=== PATIENT | female | born 1955 | race African-American/Black ===

== ENCOUNTER 2020-07-28 16:21 | Emergency (ER) | payer MEDICAID, OTHER ==
[~2020-07-28] VITALS: Ht 165.1 cm; Wt 68.0 kg
[2020-07-28 17:00] LABS: Basophils # (auto) 0 10 ^3/uL (0-0.2); Basophils % (auto) 0.7 % (0.0-2.0); Eosinophils # (auto) 0 10 ^3/uL (0-0.8); Eosinophils % (auto) 0.9 % (0.0-7.0); Hematocrit 39.5 % (36.0-46.0); Hemoglobin 13.6 g/dL (12.2-16.2); Lymphocytes # (auto) 2.6 10 ^3/uL (0.4-5.4); Lymphocytes % (auto) 51.3 % (10.0-50.0); Mean Corpuscular Hemoglobin 36.2 pg (28.0-32.0); Mean Corpuscular Hgb Conc. 34.5 g/dL (32.0-36.0); Mean Corpuscular Volume 104.9 fL (80.0-100.0); Monocytes # (auto) 0.5 10 ^3/uL (0-1.3); Monocytes % (auto) 9.3 % (0.0-12.0); Neutrophils # (auto) 1.9 10 ^3/uL (1.6-8.6); Neutrophils % (auto) 37.8 % (37.0-80.0); Nucleated Red Blood Cells % 0.2 %; Platelet Count (auto) 171 10^3/uL (140-450); Red Blood Cells 3.77 10^6/uL (4.0-5.20); Red Cell Distribution Width 16.4 % (11.8-14.3)
[2020-07-28 17:25] LABS: INR 1.11 (0.9-1.15); Partial Thromboplastin Time 27.5 sec (23.0-31.2)
[2020-07-28 17:26] LABS: Albumin 2.8 g/dL (3.4-5.0); Anion Gap 9 (5-15); Calcium 8.1 mg/dL (8.5-10.1); Carbon Dioxide 23 mmol/L (21-32); Chloride 113 mmol/L (98-107); Glucose 78 mg/dL (74-106); Magnesium 1.8 mg/dL (1.6-2.6); Sodium 145 mmol/L (136-145)
[2020-07-28 17:37] LABS: Alanine Aminotransferase 36 U/L (13-56); Alkaline Phosphatase 121 U/L (45-117); Aspartate Aminotransferase 79 U/L (15-37); Bilirubin, Total 0.3 mg/dL (0.2-1.0); GFR African American 127 mL/min; GFR Non-African American 105 mL/min; Total Protein 6.3 g/dL (6.4-8.2)
[2020-07-28 17:38] LABS: Potassium 2.7 mmol/L (3.5-5.1)
[2020-07-28 17:42] LABS: BUN/Creatinine Ratio 11.5; Blood Urea Nitrogen 7 mg/dL (7-18)
[2020-07-28] MEDS: HYDROcodone-ACET 10/325MG TAB PO ONE (20:40)
[2020-07-28] MEDS: POTASSIUM CHL 20 Meq TABLET PO ONE ×2 (20:40→22:44)
[2020-07-28] MEDS: POTASSIUM CHL 20MEQ/100ML 100 ML IV SCH (21:15)
[2020-07-29 01:08] VITALS: BP 106/64
== END 2020-07-29 01:19 | disposition still patient (30) ==
LOC: ER 16:21
DX: R06.02 Shortness of breath (principal); R07.89 Other chest pain; E87.6 Hypokalemia; E44.0 Moderate protein-calorie malnutrition; I50.9 Heart failure, unspecified; K21.9 Gastro-esophageal reflux disease without esophagitis; F17.210 Nicotine dependence, cigarettes, uncomplicated; Z20.822 Contact with and (suspected) exposure to COVID-19; Z86.73 Personal history of transient ischemic attack (TIA), and cerebral infarction without residual deficits; Z68.25 Body mass index [BMI] 25.0-25.9, adult
CPT/HCPCS: 36415; 71045; 80053; 83735; 83880; 84484; 85025; 85379; 85610; 85730; 87426; 93005; 93971; 96365; 99285; C9803; J3480; U0003

== ENCOUNTER 2020-10-29 21:43 | Inpatient (IN) | payer MEDICAID ==
[~2020-10-29] VITALS: Ht 167.6 cm; Wt 78.0 kg
[2020-10-29 23:21] LABS: Hemoglobin 11.9 g/dL (12.2-16.2); Nucleated Red Blood Cells % 0.1 %; Red Cell Distribution Width 15.2 % (11.8-14.3)
[2020-10-29 23:22] LABS: Basophils # (auto) 0.1 10 ^3/uL (0-0.2); Basophils % (auto) 0.9 % (0.0-2.0); Eosinophils # (auto) 0 10 ^3/uL (0-0.8); Eosinophils % (auto) 0.3 % (0.0-7.0); Hematocrit 35.3 % (36.0-46.0); Lymphocytes % (auto) 21.6 % (10.0-50.0); Mean Corpuscular Hemoglobin 37.8 pg (28.0-32.0); Mean Corpuscular Hgb Conc. 33.8 g/dL (32.0-36.0); Monocytes # (auto) 1.8 10 ^3/uL (0-1.3); Monocytes % (auto) 13.3 % (0.0-12.0); Neutrophils # (auto) 8.8 10 ^3/uL (1.6-8.6); Neutrophils % (auto) 63.9 % (37.0-80.0); Platelet Count (auto) 243 10^3/uL (140-450); Red Blood Cells 3.15 10^6/uL (4.0-5.20); White Blood Cell 13.7 10^3/uL (4.4-10.8)
[2020-10-29 23:40] LABS: Alanine Aminotransferase 46 U/L (13-56); Anion Gap 7 (5-15); Blood Urea Nitrogen 5 mg/dL (7-18); Calcium 8.1 mg/dL (8.5-10.1); Carbon Dioxide 23 mmol/L (21-32); Chloride 108 mmol/L (98-107); Glucose 85 mg/dL (74-106); Potassium 3.8 mmol/L (3.5-5.1); Sodium 138 mmol/L (136-145)
[2020-10-29 23:45] LABS: Alkaline Phosphatase 227 U/L (45-117); Aspartate Aminotransferase 125 U/L (15-37); Bilirubin, Total 3.4 mg/dL (0.2-1.0); GFR African American 160 mL/min; GFR Non-African American 132 mL/min; Total Protein 6.8 g/dL (6.4-8.2)
[2020-10-29 23:59] LABS: INR 1.28 (0.9-1.15)
[2020-10-30] MEDS ORDERED: ONDANSETRON HCL 4 MG/2 ML VIAL IV ONE (00:15)
[2020-10-30] MEDS ORDERED: fentaNYL CITRATE 100 MCG/2 ML VL IV ONE (00:15)
[2020-10-30] MEDS ORDERED: IOHEXOL 300 MG/ML 100ML BOTTLE IJ ONE (02:07)
[2020-10-30] MEDS ORDERED: HYDROmorphone HCL 2 MG/ML VL IV ONE (05:00)
[2020-10-30] MEDS ORDERED: MORPHINE SULF INJ 2 MG/ML SYRINGE 1ML IV PRN (06:45)
[2020-10-30] MEDS ORDERED: ALBUMIN 25% 50 ML IV ONE (06:45)
[2020-10-30] MEDS ORDERED: NITROGLYCERIN 0.4 MG SL TAB SL PRN (06:45)
[2020-10-30] MEDS ORDERED: IBUPROFEN 400 MG TAB PO PRN (06:45)
[2020-10-30] MEDS ORDERED: MORPHINE SULFATE 4 MG/ML SYR/VIAL IV PRN (06:45)
[2020-10-30 08:21] LABS: Eosinophils # (auto) 0.1 10 ^3/uL (0-0.8)
[2020-10-30 08:23] LABS: Basophils # (auto) 0 10 ^3/uL (0-0.2); Basophils % (auto) 0.2 % (0.0-2.0); Eosinophils % (auto) 0.4 % (0.0-7.0); Hematocrit 29.1 % (36.0-46.0); Hemoglobin 9.9 g/dL (12.2-16.2); Lymphocytes # (auto) 2.5 10 ^3/uL (0.4-5.4); Lymphocytes % (auto) 19.6 % (10.0-50.0); Mean Corpuscular Hemoglobin 38.1 pg (28.0-32.0); Mean Corpuscular Volume 112.3 fL (80.0-100.0); Monocytes # (auto) 1.9 10 ^3/uL (0-1.3); Monocytes % (auto) 15.1 % (0.0-12.0); Neutrophils # (auto) 8.3 10 ^3/uL (1.6-8.6); Neutrophils % (auto) 64.7 % (37.0-80.0); Platelet Count (auto) 206 10^3/uL (140-450); Red Blood Cells 2.59 10^6/uL (4.0-5.20); Red Cell Distribution Width 15.3 % (11.8-14.3); White Blood Cell 12.8 10^3/uL (4.4-10.8)
[2020-10-30 08:34] LABS: Albumin 1.8 g/dL (3.4-5.0); Calcium 7.6 mg/dL (8.5-10.1); Potassium 4.1 mmol/L (3.5-5.1)
[2020-10-30 08:40] LABS: Bilirubin, Total 3.5 mg/dL (0.2-1.0); Total Protein 5.8 g/dL (6.4-8.2)
[2020-10-30 09:00] VITALS: BP 91/57
[2020-10-30] MEDS ORDERED: ASPI325T4 PO (09:59)
[2020-10-30] MEDS: FUROSEMIDE 40 MG/4 ML VIAL IV SCH (10:00)
[2020-10-30] MEDS ORDERED: HYDR-4798 PO (10:00)
[2020-10-30] MEDS: ZINC SULFATE 220mg CAP or TAB PO SCH (10:50)
[2020-10-30] MEDS: FAMOTIDINE (10MG/ML) 2ML VL IV SCH ×2 (10:50→22:03)
[2020-10-30] MEDS: AZITHROMYCIN 500MG/ 250ML 250 ML IV SCH (10:50)
[2020-10-30] MEDS: MULTIPLE VITAMIN TAB PO SCH (10:51)
[2020-10-30] MEDS: ASCORBIC ACID 500 MG TAB PO SCH ×2 (10:51→22:03)
[2020-10-30] MEDS: ONDANSETRON HCL 4 MG/2 ML VIAL IV PRN ×2 (12:24→17:37)
[2020-10-30 13:00] VITALS: BP 129/73
[2020-10-30] MEDS: SODIUM CHLOR 0.9% PF (SALINE LOCK) 10ML VIAL/SYR IV SCH ×2 (14:41→22:03)
[2020-10-30] MEDS: ALBUMIN 25% 100 ML IV SCH ×2 (16:20→17:03)
[2020-10-30 17:00] VITALS: BP 101/67
[2020-10-30] MEDS: MORPHINE SULFATE 4 MG/ML SYR/VIAL IV PRN ×2 (17:37→22:04)
[2020-10-30] MEDS: HYDROcodone-ACET 5/325MG TAB PO PRN ×2 (18:51→20:04)
[2020-10-30 22:00] VITALS: BP 105/64
[2020-10-31 05:00] VITALS: BP 105/60
[2020-10-31] MEDS: SODIUM CHLOR 0.9% PF (SALINE LOCK) 10ML VIAL/SYR IV SCH ×3 (05:53→22:03)
[2020-10-31 05:59] LABS: Basophils # (auto) 0 10 ^3/uL (0-0.2); Eosinophils # (auto) 0.1 10 ^3/uL (0-0.8); Eosinophils % (auto) 0.8 % (0.0-7.0); Hemoglobin 10.5 g/dL (12.2-16.2); Monocytes # (auto) 1.1 10 ^3/uL (0-1.3); Neutrophils # (auto) 6.3 10 ^3/uL (1.6-8.6); Nucleated Red Blood Cells % 0.1 %
[2020-10-31 06:01] LABS: Basophils % (auto) 0.3 % (0.0-2.0); Hematocrit 30.6 % (36.0-46.0); Lymphocytes % (auto) 28.1 % (10.0-50.0); Mean Corpuscular Hemoglobin 39.5 pg (28.0-32.0); Mean Corpuscular Hgb Conc. 34.3 g/dL (32.0-36.0); Monocytes % (auto) 10.9 % (0.0-12.0); Neutrophils % (auto) 59.9 % (37.0-80.0); Platelet Count (auto) 199 10^3/uL (140-450); Red Blood Cells 2.66 10^6/uL (4.0-5.20); Red Cell Distribution Width 15.3 % (11.8-14.3); White Blood Cell 10.5 10^3/uL (4.4-10.8)
[2020-10-31 06:08] LABS: Albumin 2.6 g/dL (3.4-5.0); Calcium 8.2 mg/dL (8.5-10.1); Potassium 4.3 mmol/L (3.5-5.1)
[2020-10-31 06:12] LABS: BUN/Creatinine Ratio 9.1; Bilirubin, Total 2.5 mg/dL (0.2-1.0); Total Protein 6.5 g/dL (6.4-8.2)
[2020-10-31] MEDS: MORPHINE SULFATE 4 MG/ML SYR/VIAL IV PRN ×3 (06:31→20:01)
[2020-10-31 08:00] VITALS: BP 101/64
[2020-10-31] MEDS ORDERED: PHYTONADIONE(VitK) ORAL Susp 10mg/10ml(1mg/ml) PO ONE (11:00)
[2020-10-31] MEDS: FAMOTIDINE (10MG/ML) 2ML VL IV SCH ×2 (11:25→22:03)
[2020-10-31] MEDS: ZINC SULFATE 220mg CAP or TAB PO SCH (11:26)
[2020-10-31] MEDS: MULTIPLE VITAMIN TAB PO SCH (11:26)
[2020-10-31] MEDS: AZITHROMYCIN 500MG/ 250ML 250 ML IV SCH (11:26)
[2020-10-31] MEDS: ASCORBIC ACID 500 MG TAB PO SCH (11:27)
[2020-10-31 12:00] VITALS: BP 111/67
[2020-10-31] MEDS: FUROSEMIDE 40 MG/4 ML VIAL IV SCH (12:37)
[2020-10-31] MEDS ORDERED: POLYETHYLENE GLYCOL 17 GM PWDR PO PRN (13:00)
[2020-10-31 16:00] VITALS: BP 89/61
[2020-10-31] MEDS ORDERED: SODIUM CHLORIDE 0.9% 1,000 ML IV ONE ×2 (16:45→19:00)
[2020-10-31 18:48] VITALS: BP 100/64
[2020-10-31 22:00] VITALS: BP 101/68
[2020-11-01] VITALS (7 sets, daily range): BP systolic 94–128; BP diastolic 44–87
[2020-11-01] MEDS: MORPHINE SULFATE 4 MG/ML SYR/VIAL IV PRN ×4 (00:03→17:58)
[2020-11-01] MEDS: SODIUM CHLOR 0.9% PF (SALINE LOCK) 10ML VIAL/SYR IV SCH ×3 (06:35→22:38)
[2020-11-01] MEDS: FAMOTIDINE (10MG/ML) 2ML VL IV SCH ×2 (09:24→22:38)
[2020-11-01] MEDS ORDERED: LORazepam 2MG/ML-1ML VIAL IV ONE (10:15)
[2020-11-01] MEDS ORDERED: SODIUM CHLORIDE 0.9% 1,000 ML IV ONE (10:15)
[2020-11-01] MEDS ORDERED: GADOTERATE MEG 10 MMOL/20ml INJ (0.5MMOL/ml) IV ONE (15:26)
[2020-11-01] MEDS: HYDROcodone-ACET 5/325MG TAB PO PRN ×2 (16:54→21:02)
== END 2020-11-02 00:50 | disposition left against medical advice (07) ==
LOC: EDBD 21:43 → EDUNIT# 21:43 → ER 21:43 → TELE 10-30 06:39 → TELE-WESTW 10-30 08:47
PROVIDERS: ADMIT Nurse Practitioner Family; ATTEND Internal Medicine
DX: K81.9 Cholecystitis, unspecified (principal); D68.4 Acquired coagulation factor deficiency; I50.9 Heart failure, unspecified; E44.0 Moderate protein-calorie malnutrition; E66.01 Morbid (severe) obesity due to excess calories; R16.0 Hepatomegaly, not elsewhere classified; K76.0 Fatty (change of) liver, not elsewhere classified; K86.1 Other chronic pancreatitis; R19.00 Intra-abdominal and pelvic swelling, mass and lump, unspecified site; K82.8 Other specified diseases of gallbladder; K57.30 Diverticulosis of large intestine without perforation or abscess without bleeding; Z53.29 Procedure and treatment not carried out because of patient's decision for other reasons; F17.210 Nicotine dependence, cigarettes, uncomplicated; M79.605 Pain in left leg; G89.4 Chronic pain syndrome; K21.00 Gastro-esophageal reflux disease with esophagitis, without bleeding; Z88.8 Allergy status to other drugs, medicaments and biological substances; Z86.73 Personal history of transient ischemic attack (TIA), and cerebral infarction without residual deficits; Z68.27 Body mass index [BMI] 27.0-27.9, adult
CPT/HCPCS: 36415; 71045; 74177; 74183; 76705; 80053; 82105; 82378; 83735; 83880; 84484; 85025; 85610; 86301; 86850; 86900; 86901; 87426; 93005; 93970; 96365; 96375; G0378; J2405; J3490; P9047

== ENCOUNTER 2020-12-01 12:22 | Inpatient (IN) | payer MEDICAID ==
[~2020-12-01] VITALS: Ht 167.6 cm; Wt 85.7 kg
[~2020-12-01 12:22] MED LIST: ASPI325T4 PO; HYDR-4798 PO
[2020-12-01] MEDS ORDERED: HYDR-4072 (13:45)
[2020-12-01 14:21] LABS: Mean Corpuscular Hemoglobin 37.6 pg (28.0-32.0); White Blood Cell 11.9 10^3/uL (4.4-10.8)
[2020-12-01 14:22] LABS: Hematocrit 30.3 % (36.0-46.0); Hemoglobin 10.8 g/dL (12.2-16.2); Mean Corpuscular Hgb Conc. 35.7 g/dL (32.0-36.0); Mean Corpuscular Volume 105.5 fL (80.0-100.0); Red Blood Cells 2.87 10^6/uL (4.0-5.20); Red Cell Distribution Width 13.6 % (11.8-14.3)
[2020-12-01 14:26] LABS: Basophils % (manual) 0 (0.0-2.0); Blast Cells 0; Eosinophils % (manual) 0 (0-7); Metamyelocytes % 0; Myelocytes % 0; Promyelocytes % 0; Reactive Lymphocytes 0
[2020-12-01 14:40] LABS: Albumin 1.9 g/dL (3.4-5.0); Calcium 7.5 mg/dL (8.5-10.1)
[2020-12-01 14:45] LABS: BUN/Creatinine Ratio 3.6; Total Protein 6.2 g/dL (6.4-8.2)
[2020-12-01] MEDS ORDERED: SODIUM CHLORIDE 0.9% 1,000 ML IV ONE (14:45)
[2020-12-01] MEDS ORDERED: MORPHINE SULFATE 4 MG/ML SYR/VIAL IV ONE (14:45)
[2020-12-01] MEDS ORDERED: SODIUM CHLORIDE 0.9% 500 ML IVB ONE (14:45)
[2020-12-01] MEDS ORDERED: PROMETHAZINE HCL 25 MG/ML 1ML IV ONE (14:45)
[2020-12-01 14:48] LABS: Potassium 2.9 mmol/L (3.5-5.1)
[2020-12-01 15:08] LABS: Band Neutrophils % (manual) 6; Lymphocytes % (manual) 21 (10.0-50.0); Monocytes % (manual) 13 (0-12)
[2020-12-01] MEDS ORDERED: POTASSIUM EFFERVESENT TAB 25 MEQ PO ONE (15:15)
[2020-12-01] MEDS ORDERED: IOHEXOL 300 MG/ML 100ML BOTTLE IJ ONE (15:42)
[2020-12-01 16:03] LABS: Urine Bacteria NONE SEEN /hpf (None Seen); Urine Blood Negative /uL (Negative); Urine Mucus FEW (None Seen); Urine Specific Gravity 1.011 (1.001-1.035); Urine WBC 3 /hpf (0 - 5)
[2020-12-01 16:13] LABS: Magnesium 1.7 mg/dL (1.6-2.6)
[2020-12-01 16:22] LABS: INR 1.49 (0.9-1.15); Partial Thromboplastin Time 35.6 sec (23.0-31.2)
[2020-12-01] MEDS ORDERED: levoFLOXacin 500MG 100 ML IV ONE (17:30)
[2020-12-01] MEDS ORDERED: ACETAMINOPHEN 500 MG TAB PO PRN (17:30)
[2020-12-01] MEDS ORDERED: ONDANSETRON HCL 4 MG/2 ML VIAL IV PRN (17:30)
[2020-12-01] MEDS: D5W/SOD CHLO 0.9% 1,000 ML IV SCH (18:03)
[2020-12-01] MEDS: MORPHINE SULF INJ 2 MG/ML SYRINGE 1ML IV PRN (18:19)
[2020-12-01] MEDS: FAMOTIDINE (10MG/ML) 2ML VL IV SCH (22:16)
[2020-12-02] MEDS: MORPHINE SULF INJ 2 MG/ML SYRINGE 1ML IV PRN ×2 (00:05→01:13)
[2020-12-02] MEDS: D5W/SOD CHLO 0.9% 1,000 ML IV SCH ×3 (01:30→17:19)
[2020-12-02 05:00] VITALS: BP 83/51
[2020-12-02] MEDS ORDERED: POTASSIUM CHLORIDE 40 MEQ, LIDOCAINE 1% (LOCAL ANESTH.) 4 ML in SODIUM CHL 0.9% 250 ML IV ONE (07:45)
[2020-12-02] MEDS: FAMOTIDINE (10MG/ML) 2ML VL IV SCH (08:52)
[2020-12-02 09:00] VITALS: BP 82/50
[2020-12-02] MEDS: HYDROcodone-ACET 10/325MG TAB PO PRN ×3 (09:20→23:57)
[2020-12-02] MEDS: levoFLOXacin 500MG 100 ML IV SCH (10:00)
[2020-12-02 10:46] LABS: Albumin 1.7 g/dL (3.4-5.0); Calcium 7.1 mg/dL (8.5-10.1); Magnesium 1.9 mg/dL (1.6-2.6); Potassium 3.3 mmol/L (3.5-5.1)
[2020-12-02 10:51] LABS: BUN/Creatinine Ratio 5.9; Bilirubin, Total 2.2 mg/dL (0.2-1.0); Total Protein 5.6 g/dL (6.4-8.2)
[2020-12-02 13:00] VITALS: BP 81/45
[2020-12-02] MEDS ORDERED: ALBUMIN 25% 100 ML IV SCH (13:30)
[2020-12-02] MEDS ORDERED: POTASSIUM CHL 20 Meq TABLET PO ONE (13:30)
[2020-12-02] MEDS ORDERED: LORazepam 2MG/ML-1ML VIAL IV ONE (13:30)
[2020-12-02] MEDS: PANTOPRAZOLE 40 MG TAB PO SCH ×2 (14:36→21:44)
[2020-12-02] MEDS: SUCRALFATE 1 GM/10 ML ORAL SUSP PO SCH ×3 (14:36→21:44)
[2020-12-02] MEDS: ALBUMIN 25% 100 ML IV SCH ×2 (16:30→23:57)
[2020-12-02 17:00] VITALS: BP 84/33
[2020-12-02 22:00] VITALS: BP 93/59
[2020-12-03] MEDS: D5W/SOD CHLO 0.9% 1,000 ML IV SCH (02:00)
[2020-12-03 05:00] VITALS: BP 102/46
[2020-12-03] MEDS: SUCRALFATE 1 GM/10 ML ORAL SUSP PO SCH ×4 (06:37→22:15)
[2020-12-03] MEDS: HYDROcodone-ACET 10/325MG TAB PO PRN ×2 (06:50→22:15)
[2020-12-03] MEDS: ALBUMIN 25% 100 ML IV SCH (08:00)
[2020-12-03 09:00] VITALS: BP 90/54
[2020-12-03] MEDS: levoFLOXacin 500MG 100 ML IV SCH (10:00)
[2020-12-03] MEDS: PANTOPRAZOLE 40 MG TAB PO SCH ×2 (10:00→22:16)
[2020-12-03 13:00] VITALS: BP 89/37
[2020-12-03] MEDS: GABAPENTIN 300 MG CAP PO SCH ×2 (14:02→22:15)
[2020-12-03 17:00] VITALS: BP 84/42
[2020-12-03 22:00] VITALS: BP 125/72
[2020-12-04 05:00] VITALS: BP 94/59
[2020-12-04] MEDS: HYDROcodone-ACET 10/325MG TAB PO PRN ×3 (06:41→18:04)
[2020-12-04] MEDS: GABAPENTIN 300 MG CAP PO SCH ×3 (06:44→22:18)
[2020-12-04] MEDS: SUCRALFATE 1 GM/10 ML ORAL SUSP PO SCH ×4 (06:44→22:18)
[2020-12-04 07:16] LABS: Basophils # (auto) 0 10 ^3/uL (0-0.2); Basophils % (auto) 0.4 % (0.0-2.0); Eosinophils # (auto) 0.1 10 ^3/uL (0-0.8); Eosinophils % (auto) 0.5 % (0.0-7.0); Hematocrit 32.2 % (36.0-46.0); Hemoglobin 10.7 g/dL (12.2-16.2); Lymphocytes # (auto) 2.4 10 ^3/uL (0.4-5.4); Lymphocytes % (auto) 23.6 % (10.0-50.0); Mean Corpuscular Hemoglobin 37.5 pg (28.0-32.0); Mean Corpuscular Hgb Conc. 33.2 g/dL (32.0-36.0); Mean Corpuscular Volume 112.9 fL (80.0-100.0); Monocytes # (auto) 1.5 10 ^3/uL (0-1.3); Monocytes % (auto) 15.2 % (0.0-12.0); Neutrophils # (auto) 6.1 10 ^3/uL (1.6-8.6); Neutrophils % (auto) 60.3 % (37.0-80.0); Nucleated Red Blood Cells % 0.1 %; Red Blood Cells 2.85 10^6/uL (4.0-5.20); Red Cell Distribution Width 14.9 % (11.8-14.3); White Blood Cell 10.2 10^3/uL (4.4-10.8)
[2020-12-04 07:44] LABS: Calcium 7.9 mg/dL (8.5-10.1); Potassium 3.9 mmol/L (3.5-5.1)
[2020-12-04 07:50] LABS: Albumin 2.8 g/dL (3.4-5.0); BUN/Creatinine Ratio 1.7; Bilirubin, Total 2.7 mg/dL (0.2-1.0); Total Protein 6.5 g/dL (6.4-8.2)
[2020-12-04 09:00] VITALS: BP 84/55
[2020-12-04] MEDS: levoFLOXacin 500MG 100 ML IV SCH (10:00)
[2020-12-04] MEDS: PANTOPRAZOLE 40 MG TAB PO SCH ×2 (10:00→22:00)
[2020-12-04] MEDS: SODIUM CHLORIDE 0.9% 1,000 ML IV SCH ×3 (10:45→21:45)
[2020-12-04 13:00] VITALS: BP 82/40
[2020-12-04 17:00] VITALS: BP 104/57
[2020-12-04] MEDS ORDERED: ALBUTEROL SULF 2.5 MG/0.5ML(0.5%) NEB SOLN ONE (21:57)
[2020-12-04] MEDS ORDERED: IPRATROPIUM BROM 0.5 MG/2.5ML INH SOL ONE (21:57)
[2020-12-04] MEDS ORDERED: IPRATROPIUM BROM 0.5 MG/2.5ML INH SOL NEB PRN (22:15)
[2020-12-04] MEDS ORDERED: ALBUTEROL SULF 2.5 MG/0.5ML(0.5%) NEB SOLN NEB PRN (22:15)
[2020-12-05] MEDS: MORPHINE SULF INJ 2 MG/ML SYRINGE 1ML IV PRN ×3 (00:09→11:38)
[2020-12-05] MEDS ORDERED: MORPHINE SULFATE 4 MG/ML SYR/VIAL IV PRN (01:30)
[2020-12-05 05:00] VITALS: BP 83/41
[2020-12-05] MEDS: GABAPENTIN 300 MG CAP PO SCH ×2 (06:00→14:12)
[2020-12-05] MEDS: SUCRALFATE 1 GM/10 ML ORAL SUSP PO SCH ×3 (06:12→17:00)
[2020-12-05 09:00] VITALS: BP 92/50
[2020-12-05] MEDS: PANTOPRAZOLE 40 MG TAB PO SCH (10:49)
[2020-12-05] MEDS: levoFLOXacin 500MG 100 ML IV SCH (10:51)
[2020-12-05] MEDS ORDERED: PANC3600 OR (11:22)
[2020-12-05] MEDS ORDERED: PANT40TA2 PO (11:22)
[2020-12-05] MEDS ORDERED: GABA300C10 PO (11:22)
[2020-12-05] MEDS ORDERED: SUCR1SUS10 PO (11:22)
[2020-12-05] MEDS ORDERED: HYDR-4798 PO (11:22)
[2020-12-05 12:54] VITALS: BP 86/59
[2020-12-05] MEDS: HYDROcodone-ACET 10/325MG TAB PO PRN (15:00)
[2020-12-05 16:42] VITALS: BP 78/46
[2020-12-05] MEDS: SODIUM CHLORIDE 0.9% 1,000 ML IV SCH (16:45)
== END 2020-12-05 19:00 | disposition home or self-care (01) ==
LOC: ER 12:22 → EDBD 12:22 → EDUNIT# 12:22 → OVERFLOW 17:21 → WEST WING 20:16 → TELE-WESTW 12-05 03:21
PROVIDERS: ADMIT Hospitalist; ATTEND Hospitalist
DX: K76.0 Fatty (change of) liver, not elsewhere classified (principal); E43 Unspecified severe protein-calorie malnutrition; I50.9 Heart failure, unspecified; R16.0 Hepatomegaly, not elsewhere classified; R18.8 Other ascites; K86.0 Alcohol-induced chronic pancreatitis; Z20.822 Contact with and (suspected) exposure to COVID-19; E87.6 Hypokalemia; D63.8 Anemia in other chronic diseases classified elsewhere; E80.6 Other disorders of bilirubin metabolism; F10.10 Alcohol abuse, uncomplicated; K21.9 Gastro-esophageal reflux disease without esophagitis; F17.210 Nicotine dependence, cigarettes, uncomplicated; K44.9 Diaphragmatic hernia without obstruction or gangrene; Z82.49 Family history of ischemic heart disease and other diseases of the circulatory system; Z86.73 Personal history of transient ischemic attack (TIA), and cerebral infarction without residual deficits; Z88.1 Allergy status to other antibiotic agents; Z79.899 Other long term (current) drug therapy; Z79.891 Long term (current) use of opiate analgesic; Z79.01 Long term (current) use of anticoagulants; Z79.82 Long term (current) use of aspirin; Z68.30 Body mass index [BMI] 30.0-30.9, adult
CPT/HCPCS: 36415; 71045; 74177; 74181; 76705; 78226; 80053; 80320; 81001; 83690; 83735; 84443; 84484; 85007; 85025; 85027; 85049; 85610; 85730; 87426; 93005; 93970; 94640; 96361; 96365; 96375; G0378; J1956; J2001; J2405; J3490; J7042

== ENCOUNTER 2020-12-14 15:16 | Inpatient (IN) | payer MEDICAID ==
[~2020-12-14] VITALS: Ht 165.1 cm; Wt 71.4 kg
[~2020-12-14 15:16] MED LIST changes: +GABA300C10 PO; +PANC3600 OR; +PANT40TA2 PO; +SUCR1SUS10 PO
[2020-12-14] MEDS ORDERED: FUROSEMIDE 40 MG/4 ML VIAL IV ONE (16:00)
[2020-12-14 17:02] LABS: Alanine Aminotransferase 22 U/L (13-56); Albumin 2.3 g/dL (3.4-5.0); Anion Gap 5 (5-15); Aspartate Aminotransferase 77 U/L (15-37); BUN/Creatinine Ratio 8.2; Blood Urea Nitrogen 5 mg/dL (7-18); Calcium 7.8 mg/dL (8.5-10.1); Carbon Dioxide 25 mmol/L (21-32); Chloride 112 mmol/L (98-107); GFR African American 127 mL/min; GFR Non-African American 105 mL/min; Glucose 83 mg/dL (74-106); Potassium 3.9 mmol/L (3.5-5.1); Sodium 142 mmol/L (136-145)
[2020-12-14 17:05] LABS: Basophils # (auto) 0.1 10 ^3/uL (0-0.2); Eosinophils # (auto) 0.1 10 ^3/uL (0-0.8); Hematocrit 30.7 % (36.0-46.0); Hemoglobin 10.2 g/dL (12.2-16.2); Mean Corpuscular Hemoglobin 35.6 pg (28.0-32.0); Nucleated Red Blood Cells % 0.1 %; Red Cell Distribution Width 14.4 % (11.8-14.3)
[2020-12-14 17:07] LABS: Basophils % (auto) 0.5 % (0.0-2.0); Eosinophils % (auto) 0.9 % (0.0-7.0); Lymphocytes # (auto) 2.7 10 ^3/uL (0.4-5.4); Lymphocytes % (auto) 25.8 % (10.0-50.0); Mean Corpuscular Hgb Conc. 33.2 g/dL (32.0-36.0); Neutrophils # (auto) 6.5 10 ^3/uL (1.6-8.6); Neutrophils % (auto) 62.8 % (37.0-80.0); Red Blood Cells 2.87 10^6/uL (4.0-5.20); White Blood Cell 10.4 10^3/uL (4.4-10.8)
[2020-12-14 17:19] LABS: Alkaline Phosphatase 186 U/L (45-117); Bilirubin, Total 1.8 mg/dL (0.2-1.0)
[2020-12-14 17:32] LABS: Urine Bacteria FEW /hpf (None Seen); Urine Blood 2+ /uL (Negative); Urine Specific Gravity 1.009 (1.001-1.035); Urine WBC 2 /hpf (0 - 5)
[2020-12-14] MEDS ORDERED: IOHEXOL 350 MG/ML 100ML IJ ONE (19:53)
[2020-12-14] MEDS ORDERED: MORPHINE SULFATE 4 MG/ML SYR/VIAL IV ONE (22:00)
[2020-12-15] MEDS ORDERED: MORPHINE SULF INJ 2 MG/ML SYRINGE 1ML IV ONE (06:00)
[2020-12-15] MEDS ORDERED: ONDANSETRON HCL 4 MG/2 ML VIAL IV ONE (06:00)
[2020-12-15] MEDS ORDERED: ONDANSETRON HCL 4 MG/2 ML VIAL ONE (06:16)
[2020-12-15] MEDS ORDERED: MORPHINE SULF INJ 2 MG/ML SYRINGE 1ML IV PRN (07:00)
[2020-12-15] MEDS ORDERED: ONDANSETRON HCL 4 MG/2 ML VIAL IV PRN (07:00)
[2020-12-15] MEDS ORDERED: NITROGLYCERIN 0.4 MG SL TAB SL PRN (07:00)
[2020-12-15] MEDS ORDERED: HYDR-4072 PO (10:20)
[2020-12-15] MEDS: PANTOPRAZOLE 40 MG TAB PO SCH (10:33)
[2020-12-15] MEDS ORDERED: POLYETHYLENE GLYCOL 17 GM PWDR PO ONE (11:00)
[2020-12-15] MEDS: SPIRONOLACTONE 25 MG TAB PO SCH (12:29)
[2020-12-15] MEDS: DOCUSATE SOD 100 MG CAP PO SCH ×2 (12:30→21:49)
[2020-12-15] MEDS: MORPHINE SULF INJ 2 MG/ML SYRINGE 1ML IV PRN ×2 (12:30→21:48)
[2020-12-15] MEDS: FUROSEMIDE 40 MG/4 ML VIAL IV SCH (12:30)
[2020-12-15 12:31] LABS: INR 1.32 (0.9-1.15)
[2020-12-15 12:40] VITALS: BP 104/57
[2020-12-15 13:00] VITALS: BP 104/57
[2020-12-15] MEDS ORDERED: ASPI-498 PO (15:05)
[2020-12-15 17:00] VITALS: BP 89/47
[2020-12-15 20:00] VITALS: BP 90/76
[2020-12-15 22:12] VITALS: BP 90/76
[2020-12-16] MEDS ORDERED: ALPRAZolam 0.5 MG TAB PO PRN (01:00)
[2020-12-16 05:00] VITALS: BP 96/51
[2020-12-16 05:48] LABS: Basophils # (auto) 0.1 10 ^3/uL (0-0.2); Eosinophils # (auto) 0.1 10 ^3/uL (0-0.8); Hemoglobin 9.5 g/dL (12.2-16.2); Lymphocytes # (auto) 2.4 10 ^3/uL (0.4-5.4); Lymphocytes % (auto) 24.6 % (10.0-50.0); Nucleated Red Blood Cells % 0.1 %; White Blood Cell 9.8 10^3/uL (4.4-10.8)
[2020-12-16 05:52] LABS: Basophils % (auto) 1.3 % (0.0-2.0); Eosinophils % (auto) 0.7 % (0.0-7.0); Mean Corpuscular Hemoglobin 37.1 pg (28.0-32.0); Mean Corpuscular Hgb Conc. 35.4 g/dL (32.0-36.0); Mean Corpuscular Volume 104.8 fL (80.0-100.0); Monocytes # (auto) 0.8 10 ^3/uL (0-1.3); Monocytes % (auto) 7.8 % (0.0-12.0); Neutrophils # (auto) 6.4 10 ^3/uL (1.6-8.6); Neutrophils % (auto) 65.6 % (37.0-80.0); Red Blood Cells 2.58 10^6/uL (4.0-5.20); Red Cell Distribution Width 14.5 % (11.8-14.3)
[2020-12-16 06:34] LABS: Albumin 2.1 g/dL (3.4-5.0); BUN/Creatinine Ratio 9.2; Bilirubin, Total 2.1 mg/dL (0.2-1.0); Calcium 8.2 mg/dL (8.5-10.1); Total Protein 6.4 g/dL (6.4-8.2)
[2020-12-16] MEDS ORDERED: OMNIPAQUE ORAL SOLN 500ml 12mg/ml PO ONE (08:57)
[2020-12-16 09:00] VITALS: BP 105/58
[2020-12-16] MEDS: PANTOPRAZOLE 40 MG TAB PO SCH (10:00)
[2020-12-16] MEDS: FUROSEMIDE 40 MG/4 ML VIAL IV SCH (10:00)
[2020-12-16] MEDS: DOCUSATE SOD 100 MG CAP PO SCH ×2 (10:00→21:40)
[2020-12-16] MEDS: SPIRONOLACTONE 25 MG TAB PO SCH (10:00)
[2020-12-16] MEDS: PANCREATIC ENZYMES 4200 UNIT CAP PO SCH (12:00)
[2020-12-16] MEDS ORDERED: LIDOCAINE 2%HCL (LOCAL ANESTH.) INJ 20ML MDV ONE (12:34)
[2020-12-16 13:00] VITALS: BP 132/79
[2020-12-16] MEDS ORDERED: SPIR25TA PO (13:03)
[2020-12-16] MEDS ORDERED: FURO1TAB31 PO (13:04)
[2020-12-16] MEDS ORDERED: DOCU100C10 PO (13:04)
[2020-12-16] MEDS ORDERED: IOHEXOL 300 MG/ML 100ML BOTTLE IJ ONE (13:15)
[2020-12-16] MEDS ORDERED: GABAPENTIN 300 MG CAP PO SCH (14:00)
[2020-12-16 17:00] VITALS: BP 132/79
[2020-12-16] MEDS ORDERED: ACETAMINOPHEN 325 MG TAB PO PRN (20:45)
[2020-12-16 22:00] VITALS: BP 122/68
[2020-12-17] VITALS (14 sets, daily range): BP systolic 104–141; BP diastolic 56–81
[2020-12-17] MEDS: LACTULOSE 20Gm/30ML SOLN PO SCH ×3 (06:00→18:38)
[2020-12-17] MEDS: PANCREATIC ENZYMES 4200 UNIT CAP PO SCH ×3 (08:00→18:38)
[2020-12-17] MEDS ORDERED: LORazepam 2MG/ML-1ML VIAL IV ONE (08:30)
[2020-12-17] MEDS ORDERED: LACTULOSE 20Gm/30ML SOLN PO ONE (09:45)
[2020-12-17] MEDS: PANTOPRAZOLE 40 MG TAB PO SCH (10:00)
[2020-12-17] MEDS: SPIRONOLACTONE 25 MG TAB PO SCH (10:00)
[2020-12-17] MEDS: FUROSEMIDE 40 MG/4 ML VIAL IV SCH (10:12)
[2020-12-17] MEDS ORDERED: MORPHINE SULF INJ 2 MG/ML SYRINGE 1ML IV PRN (13:45)
[2020-12-17] MEDS ORDERED: OMNIPAQUE ORAL SOLN 500ml 12mg/ml PO ONE (13:50)
[2020-12-17] MEDS ORDERED: IOHEXOL 300 MG/ML 100ML BOTTLE IJ ONE (14:09)
[2020-12-17] MEDS ORDERED: LIDOCAINE 2%HCL (LOCAL ANESTH.) INJ 20ML MDV ONE (14:09)
[2020-12-17] MEDS ORDERED: MIDAZOLAM HCL 1MG/1ML-2 ML VIAL ONE (14:58)
[2020-12-17] MEDS ORDERED: fentaNYL CITRATE 100 MCG/2 ML VL ONE (14:58)
[2020-12-17] MEDS ORDERED: MIDAZOLAM HCL 1MG/1ML-2 ML VIAL IV ONE (16:45)
[2020-12-17] MEDS ORDERED: fentaNYL CITRATE 100 MCG/2 ML VL IV ONE (16:45)
[2020-12-18] MEDS: LACTULOSE 20Gm/30ML SOLN PO SCH ×3 (00:29→11:14)
[2020-12-18 05:28] VITALS: BP 115/67
[2020-12-18] MEDS: PANCREATIC ENZYMES 4200 UNIT CAP PO SCH ×2 (08:00→12:00)
[2020-12-18 08:30] VITALS: BP 130/67
[2020-12-18 09:00] VITALS: BP 99/59
[2020-12-18] MEDS ORDERED: LACT10SO3 PO (10:22)
[2020-12-18] MEDS: PANTOPRAZOLE 40 MG TAB PO SCH (10:33)
[2020-12-18] MEDS: SPIRONOLACTONE 25 MG TAB PO SCH (10:33)
[2020-12-18] MEDS: FUROSEMIDE 40 MG/4 ML VIAL IV SCH (10:33)
== END 2020-12-18 13:06 | disposition home or self-care (01) | DRG 194 ==
LOC: ER 15:16 → TELE 12-15 07:00 → TELE-WESTW 12-15 11:03 → TELE-EAST 12-17 23:05
PROVIDERS: ADMIT Hospitalist; ATTEND Hospitalist
PROC: 0FJ03ZZ Inspection of Liver, Percutaneous Approach (ICD-10-PCS; principal; 2020-12-17)
DX: I11.0 Hypertensive heart disease with heart failure (principal); K74.60 Unspecified cirrhosis of liver; G62.9 Polyneuropathy, unspecified; I50.9 Heart failure, unspecified; K86.1 Other chronic pancreatitis; E66.9 Obesity, unspecified; Z20.822 Contact with and (suspected) exposure to COVID-19; K21.9 Gastro-esophageal reflux disease without esophagitis; R16.0 Hepatomegaly, not elsewhere classified; E04.2 Nontoxic multinodular goiter; F17.210 Nicotine dependence, cigarettes, uncomplicated; Z86.16 Personal history of COVID-19; Z88.1 Allergy status to other antibiotic agents; Z86.73 Personal history of transient ischemic attack (TIA), and cerebral infarction without residual deficits; Z91.19 Patient's noncompliance with other medical treatment and regimen; Z79.899 Other long term (current) drug therapy; Z68.26 Body mass index [BMI] 26.0-26.9, adult
CPT/HCPCS: 10022; 36415; 70450; 71045; 71275; 74177; 77012; 80053; 81001; 82140; 83735; 83880; 84443; 84484; 85025; 85379; 85610; 87081; 87426; 93005; 93306; 93970; 96374; 96375; 96376; 99291; G0378; J2250; J2405

== ENCOUNTER 2021-03-15 11:59 | Inpatient (IN) | payer MEDICAID ==
[~2021-03-15] VITALS: Ht 170.2 cm; Wt 79.9 kg
[~2021-03-15 11:59] MED LIST changes: -ASPI325T4 PO; +DOCU100C10 PO; +FURO1TAB31 PO; +HYDR-4072 PO; -HYDR-4798 PO; +LACT10SO3 PO; +SPIR25TA PO; -SUCR1SUS10 PO
[2021-03-15] MEDS ORDERED: MORPHINE SULFATE 4 MG/ML SYR/VIAL IV ONE (12:15)
[2021-03-15] MEDS ORDERED: SODIUM CHLORIDE 0.9% 500 ML IVB ONE (12:15)
[2021-03-15] MEDS ORDERED: ONDANSETRON HCL 4 MG/2 ML VIAL IV ONE (12:15)
[2021-03-15 13:26] LABS: Basophils # (auto) 0 10 ^3/uL (0-0.2); Eosinophils # (auto) 0 10 ^3/uL (0-0.8); Lymphocytes # (auto) 1.1 10 ^3/uL (0.4-5.4)
[2021-03-15 13:29] LABS: Basophils % (auto) 0.5 % (0.0-2.0); Eosinophils % (auto) 0.6 % (0.0-7.0); Hematocrit 28.1 % (36.0-46.0); Hemoglobin 9.6 g/dL (12.2-16.2); Lymphocytes % (auto) 38.4 % (10.0-50.0); Mean Corpuscular Hemoglobin 39.3 pg (28.0-32.0); Mean Corpuscular Hgb Conc. 34.2 g/dL (32.0-36.0); Mean Corpuscular Volume 114.7 fL (80.0-100.0); Monocytes # (auto) 0.2 10 ^3/uL (0-1.3); Monocytes % (auto) 8.6 % (0.0-12.0); Neutrophils # (auto) 1.5 10 ^3/uL (1.6-8.6); Neutrophils % (auto) 51.9 % (37.0-80.0); Nucleated Red Blood Cells % 0.3 %; Red Blood Cells 2.45 10^6/uL (4.0-5.20); Red Cell Distribution Width 17.1 % (11.8-14.3); White Blood Cell 2.8 10^3/uL (4.4-10.8)
[2021-03-15 13:30] LABS: INR 1.77 (0.9-1.15); Partial Thromboplastin Time 35.1 sec (23.6-33.0)
[2021-03-15 13:32] LABS: Albumin 1.4 g/dL (3.4-5.0); Amylase 27 U/L (25-115); Anion Gap 7 (5-15); Blood Urea Nitrogen 7 mg/dL (7-18); Calcium 7.7 mg/dL (8.5-10.1); Carbon Dioxide 22 mmol/L (21-32); Chloride 113 mmol/L (98-107); Glucose 78 mg/dL (74-106); Lipase 14 U/L (73-393); Sodium 142 mmol/L (136-145)
[2021-03-15 13:39] LABS: Alanine Aminotransferase 24 U/L (13-56); Alkaline Phosphatase 165 U/L (45-117); Aspartate Aminotransferase 52 U/L (15-37); BUN/Creatinine Ratio 8.8; Bilirubin, Total 3.5 mg/dL (0.2-1.0); GFR African American 93 mL/min; GFR Non-African American 77 mL/min; Total Protein 6.6 g/dL (6.4-8.2)
[2021-03-15] MEDS ORDERED: POTASSIUM CHL 20MEQ/100ML 100 ML IV ONE (15:30)
[2021-03-15] MEDS ORDERED: PHYTONADIONE (VIT K)10 MG/ML 1ML VIAL SUBCUT ONE (16:15)
[2021-03-15] MEDS ORDERED: ACETAMINOPHEN 325 MG TAB PO PRN (17:00)
[2021-03-15] MEDS ORDERED: hydrALAZINE HCL 20 MG/ML VL IV PRN (17:00)
[2021-03-15] MEDS ORDERED: NITROGLYCERIN 0.4 MG SL TAB SL PRN (17:00)
[2021-03-15] MEDS ORDERED: LACTULOSE 20Gm/30ML SOLN PO PRN (17:00)
[2021-03-15] MEDS ORDERED: DOCUSATE SOD 100 MG CAP PO PRN (17:00)
[2021-03-15] MEDS ORDERED: PHYTONADIONE(VitK) ORAL Susp 10mg/10ml(1mg/ml) PO ONE (17:00)
[2021-03-15] MEDS ORDERED: FUROSEMIDE 40 MG/4 ML VIAL IV ONE (17:15)
[2021-03-15] MEDS ORDERED: PANCREATIC ENZYMES 4200 UNIT CAP PO ONE (18:00)
[2021-03-15] MEDS ORDERED: FUROSEMIDE 40 MG/4 ML VIAL IV SCH (18:11)
[2021-03-15] MEDS ORDERED: POTASSIUM CHLORIDE 20 MEQ, LIDOCAINE 1% (LOCAL ANESTH.) 2 ML in SODIUM CHL 0.9% 100 ML IV ONE (19:00)
[2021-03-15] MEDS ORDERED: ALBUMIN 25% 50 ML IV ONE (20:00)
[2021-03-15] MEDS: PIPERACILLIN-TAZOB 3.375GM 100 ML IV SCH (21:19)
[2021-03-15] MEDS: HYDROcodone-ACET 5/325MG TAB PO PRN (21:31)
[2021-03-16] VITALS (7 sets, daily range): BP systolic 88–98; BP diastolic 49–62
[2021-03-16] MEDS: NOREPINEPHRINE 8 MG/250ML KIT 250 ML IV SCH ×2 (00:10→19:27)
[2021-03-16] MEDS: ALBUMIN 25% 100 ML IV SCH ×5 (00:11→14:45)
[2021-03-16 02:30] LABS: Hematocrit 23.4 % (36.0-46.0); INR 1.99 (0.9-1.15); Mean Corpuscular Hgb Conc. 34.1 g/dL (32.0-36.0); Mean Corpuscular Volume 111.4 fL (80.0-100.0); Partial Thromboplastin Time 38.9 sec (23.6-33.0); Red Cell Distribution Width 16.7 % (11.8-14.3); White Blood Cell 11.7 10^3/uL (4.4-10.8)
[2021-03-16 02:35] LABS: Basophils % (manual) 0 (0.0-2.0); Blast Cells 0; Eosinophils % (manual) 0 (0-7); Metamyelocytes % 0; Promyelocytes % 0; Reactive Lymphocytes 0
[2021-03-16 02:48] LABS: Band Neutrophils % (manual) 34; Lymphocytes % (manual) 20 (10.0-50.0); Monocytes % (manual) 6 (0-12); Myelocytes % 1
[2021-03-16] MEDS: PIPERACILLIN-TAZOB 3.375GM 100 ML IV SCH ×3 (05:56→22:18)
[2021-03-16 07:56] LABS: Albumin 2.3 g/dL (3.4-5.0); Calcium 7.7 mg/dL (8.5-10.1); Potassium 3.2 mmol/L (3.5-5.1)
[2021-03-16 07:58] LABS: BUN/Creatinine Ratio 8.7
[2021-03-16 08:01] LABS: Bilirubin, Total 5.1 mg/dL (0.2-1.0); Total Protein 6.5 g/dL (6.4-8.2)
[2021-03-16] MEDS: HYDROcodone-ACET 5/325MG TAB PO PRN ×3 (09:42→22:45)
[2021-03-16] MEDS ORDERED: SPIRONOLACTONE 25 MG TAB PO SCH ×2 (10:00)
[2021-03-16] MEDS: PANTOPRAZOLE 40 MG TAB PO SCH (11:45)
[2021-03-16] MEDS: CREON 36000 UNIT PO SCH ×2 (12:39→17:56)
[2021-03-16] MEDS ORDERED: POTASSIUM CHLORIDE 40 MEQ, LIDOCAINE 1% (LOCAL ANESTH.) 4 ML in SODIUM CHL 0.9% 250 ML IV ONE (15:45)
[2021-03-16] MEDS ORDERED: HYDROcodone-ACET 5/325MG TAB PO PRN (21:00)
[2021-03-16] MEDS: MORPHINE SULFATE INJECTION 2 MG/ML SYRG IV PRN (21:28)
[2021-03-16] MEDS: ONDANSETRON HCL 4 MG/2 ML VIAL IV PRN (21:30)
[2021-03-17] MEDS: ONDANSETRON HCL 4 MG/2 ML VIAL IV PRN (05:06)
[2021-03-17] MEDS: PIPERACILLIN-TAZOB 3.375GM 100 ML IV SCH ×3 (06:55→22:21)
[2021-03-17 07:55] LABS: Basophils # (auto) 0 10 ^3/uL (0-0.2); Eosinophils # (auto) 0 10 ^3/uL (0-0.8)
[2021-03-17 07:57] LABS: Lymphocytes # (auto) 2.7 10 ^3/uL (0.4-5.4)
[2021-03-17] MEDS: CREON 36000 UNIT PO SCH ×3 (08:00→17:25)
[2021-03-17 08:06] LABS: Neutrophils # (auto) 7.3 10 ^3/uL (1.6-8.6)
[2021-03-17 08:08] LABS: Albumin 2.4 g/dL (3.4-5.0); Calcium 7.9 mg/dL (8.5-10.1); Potassium 3.5 mmol/L (3.5-5.1)
[2021-03-17 08:09] LABS: Basophils % (auto) 0.3 % (0.0-2.0); Eosinophils % (auto) 0.3 % (0.0-7.0); Lymphocytes % (auto) 23.6 % (10.0-50.0); Mean Corpuscular Hemoglobin 38.4 pg (28.0-32.0); Mean Corpuscular Hgb Conc. 34.1 g/dL (32.0-36.0); Mean Corpuscular Volume 112.7 fL (80.0-100.0); Monocytes # (auto) 1.4 10 ^3/uL (0-1.3); Monocytes % (auto) 12.2 % (0.0-12.0); Neutrophils % (auto) 63.6 % (37.0-80.0); Nucleated Red Blood Cells % 0.1 %; Red Blood Cells 1.77 10^6/uL (4.0-5.20); Red Cell Distribution Width 16.8 % (11.8-14.3); White Blood Cell 11.4 10^3/uL (4.4-10.8)
[2021-03-17 08:12] LABS: Bilirubin, Total 3.6 mg/dL (0.2-1.0); Hemoglobin 6.8 g/dL (12.2-16.2); Total Protein 6.4 g/dL (6.4-8.2)
[2021-03-17] MEDS: GABAPENTIN 300 MG CAP PO SCH (08:58)
[2021-03-17] MEDS: PANTOPRAZOLE 40 MG TAB PO SCH ×2 (08:59→22:21)
[2021-03-17] MEDS: HYDROcodone-ACET 5/325MG TAB PO PRN ×3 (08:59→22:34)
[2021-03-17] MEDS ORDERED: MAGNESIUM SULFATE 1GM/100ML 100 ML IV SCH (09:15)
[2021-03-17] MEDS ORDERED: MVI in SODIUM CHLORIDE 0.9% 1,010 ML IV ONE (09:15)
[2021-03-17] MEDS ORDERED: THIAMINE 100mg/ml INJ (200mg/2ml VIAL) IV ONE (09:15)
[2021-03-17] MEDS ORDERED: FOLIC ACID 1 MG, MULTIPLE VITAMIN 10 ML, MAGNESIUM SULF SDV 50% 8 MEQ, THIAMINE INJ 100... INJ ONE ×5 (10:15)
[2021-03-17 10:34] LABS: Hematocrit 21.7 % (36.0-46.0); Hemoglobin 7.2 g/dL (12.2-16.2)
[2021-03-17 11:09] LABS: Folate (Folic Acid) 6.85 ng/mL (5.38-24)
[2021-03-17 15:05] LABS: INR 1.75 (0.9-1.15); Partial Thromboplastin Time 46.5 sec (23.6-33.0)
[2021-03-17 15:31] VITALS: BP 107/57
[2021-03-17 15:46] VITALS: BP 87/52
[2021-03-17 18:21] VITALS: BP 94/63
[2021-03-17 18:35] VITALS: BP 85/56
[2021-03-17 18:50] VITALS: BP 107/68
[2021-03-17] MEDS: NOREPINEPHRINE 8 MG/250ML KIT 250 ML IV SCH (22:45)
[2021-03-17 23:35] VITALS: BP 104/70
[2021-03-18] MEDS ORDERED: FUROSEMIDE 20 MG/2 ML VIAL IV ONE
[2021-03-18 04:15] VITALS: BP 115/73
[2021-03-18 04:30] VITALS: BP 115/73
[2021-03-18 06:07] LABS: Basophils # (auto) 0 10 ^3/uL (0-0.2); Basophils % (auto) 0.3 % (0.0-2.0); Hemoglobin 9.1 g/dL (12.2-16.2); Monocytes # (auto) 0.8 10 ^3/uL (0-1.3)
[2021-03-18 06:11] LABS: Eosinophils # (auto) 0 10 ^3/uL (0-0.8); Eosinophils % (auto) 0.6 % (0.0-7.0); Hematocrit 26.4 % (36.0-46.0); Lymphocytes % (auto) 23.7 % (10.0-50.0); Mean Corpuscular Hemoglobin 35.8 pg (28.0-32.0); Mean Corpuscular Hgb Conc. 34.6 g/dL (32.0-36.0); Mean Corpuscular Volume 103.5 fL (80.0-100.0); Monocytes % (auto) 9.4 % (0.0-12.0); Neutrophils # (auto) 5.5 10 ^3/uL (1.6-8.6); Nucleated Red Blood Cells % 0.1 %; Red Blood Cells 2.55 10^6/uL (4.0-5.20); Red Cell Distribution Width 21.8 % (11.8-14.3); White Blood Cell 8.3 10^3/uL (4.4-10.8)
[2021-03-18 06:25] LABS: Potassium 3.5 mmol/L (3.5-5.1)
[2021-03-18 06:32] LABS: Albumin 2.3 g/dL (3.4-5.0); BUN/Creatinine Ratio 9.8; Bilirubin, Total 5.3 mg/dL (0.2-1.0); Calcium 7.6 mg/dL (8.5-10.1); Total Protein 6.3 g/dL (6.4-8.2)
[2021-03-18] MEDS: CREON 36000 UNIT PO SCH ×3 (08:00→18:37)
[2021-03-18] MEDS: PIPERACILLIN-TAZOB 3.375GM 100 ML IV SCH ×2 (08:04→14:21)
[2021-03-18 08:55] LABS: INR 1.46 (0.9-1.15); Partial Thromboplastin Time 43.5 sec (23.6-33.0)
[2021-03-18] MEDS: GABAPENTIN 300 MG CAP PO SCH (10:00)
[2021-03-18] MEDS: PANTOPRAZOLE 40 MG TAB PO SCH ×2 (10:00→22:00)
[2021-03-18] MEDS ORDERED: ALBUMIN 25% 100 ML IV SCH (12:00)
[2021-03-18] MEDS: ALBUMIN 25% 50 ML IV SCH ×2 (12:44→20:56)
[2021-03-18] MEDS: MORPHINE SULFATE INJECTION 2 MG/ML SYRG IV PRN ×4 (15:13→22:52)
[2021-03-18 18:59] LABS: Basophils # (auto) 0 10 ^3/uL (0-0.2); Monocytes # (auto) 0.8 10 ^3/uL (0-1.3); Nucleated Red Blood Cells % 0.1 %
[2021-03-18 19:03] LABS: Basophils % (auto) 0.3 % (0.0-2.0); Eosinophils # (auto) 0 10 ^3/uL (0-0.8); Eosinophils % (auto) 0.5 % (0.0-7.0); Hematocrit 25.4 % (36.0-46.0); Hemoglobin 8.7 g/dL (12.2-16.2); Lymphocytes # (auto) 1.7 10 ^3/uL (0.4-5.4); Lymphocytes % (auto) 25.3 % (10.0-50.0); Mean Corpuscular Hemoglobin 35.5 pg (28.0-32.0); Mean Corpuscular Hgb Conc. 34.3 g/dL (32.0-36.0); Mean Corpuscular Volume 103.5 fL (80.0-100.0); Monocytes % (auto) 11.9 % (0.0-12.0); Neutrophils # (auto) 4.2 10 ^3/uL (1.6-8.6); Red Blood Cells 2.46 10^6/uL (4.0-5.20); White Blood Cell 6.7 10^3/uL (4.4-10.8)
[2021-03-18 19:07] LABS: Red Cell Distribution Width 21.4 % (11.8-14.3)
[2021-03-18 19:20] LABS: Albumin 2.3 g/dL (3.4-5.0); Calcium 7.8 mg/dL (8.5-10.1); Potassium 3.6 mmol/L (3.5-5.1)
[2021-03-18 19:26] LABS: BUN/Creatinine Ratio 8.9; Bilirubin, Total 4.4 mg/dL (0.2-1.0); Total Protein 6.1 g/dL (6.4-8.2)
[2021-03-18 21:40] VITALS: BP 115/69
[2021-03-18 22:40] VITALS: BP 115/69
[2021-03-18] MEDS: NOREPINEPHRINE 8 MG/250ML KIT 250 ML IV SCH (22:45)
[2021-03-19] MEDS: MORPHINE SULFATE INJECTION 2 MG/ML SYRG IV PRN ×4 (04:15→21:11)
[2021-03-19] MEDS: ALBUMIN 25% 50 ML IV SCH (04:26)
[2021-03-19 05:00] VITALS: BP 110/67
[2021-03-19] MEDS: PIPERACILLIN-TAZOB 3.375GM 100 ML IV SCH ×3 (05:54→21:46)
[2021-03-19] MEDS: CREON 36000 UNIT PO SCH ×3 (08:00→18:00)
[2021-03-19] MEDS: GABAPENTIN 300 MG CAP PO SCH (08:31)
[2021-03-19] MEDS: PANTOPRAZOLE 40 MG TAB PO SCH ×2 (08:32→21:46)
[2021-03-19 09:00] VITALS: BP 95/58
[2021-03-19 13:00] VITALS: BP 129/70
[2021-03-19] MEDS: HYDROcodone-ACET 5/325MG TAB PO PRN (13:21)
[2021-03-19 17:33] VITALS: BP 124/87
[2021-03-19 20:00] VITALS: BP 101/63
[2021-03-19 22:00] VITALS: BP 101/63
[2021-03-20] MEDS: MORPHINE SULFATE INJECTION 2 MG/ML SYRG IV PRN ×4 (01:50→14:17)
[2021-03-20 05:00] VITALS: BP 100/58
[2021-03-20] MEDS: PIPERACILLIN-TAZOB 3.375GM 100 ML IV SCH ×2 (05:41→14:15)
[2021-03-20 06:48] LABS: Basophils # (auto) 0 10 ^3/uL (0-0.2); Basophils % (auto) 0.4 % (0.0-2.0); Eosinophils # (auto) 0 10 ^3/uL (0-0.8); Hematocrit 25.8 % (36.0-46.0); Hemoglobin 9.1 g/dL (12.2-16.2); Lymphocytes # (auto) 2.1 10 ^3/uL (0.4-5.4); Mean Corpuscular Hgb Conc. 35.2 g/dL (32.0-36.0); Monocytes # (auto) 1.2 10 ^3/uL (0-1.3); Nucleated Red Blood Cells % 0.2 %
[2021-03-20 06:51] LABS: Eosinophils % (auto) 0.7 % (0.0-7.0); Mean Corpuscular Hemoglobin 37.1 pg (28.0-32.0); Mean Corpuscular Volume 105.2 fL (80.0-100.0); Red Blood Cells 2.45 10^6/uL (4.0-5.20); Red Cell Distribution Width 20.3 % (11.8-14.3); White Blood Cell 6.4 10^3/uL (4.4-10.8)
[2021-03-20 06:56] LABS: Lymphocytes % (auto) 33.4 % (10.0-50.0)
[2021-03-20 06:57] LABS: Neutrophils % (auto) 48.5 % (37.0-80.0)
[2021-03-20 08:00] VITALS: BP_SYST 92; BP_SYST 98; BP_DIAS 55; BP_DIAS 59
[2021-03-20] MEDS: CREON 36000 UNIT PO SCH ×3 (08:00→17:46)
[2021-03-20] MEDS: GABAPENTIN 300 MG CAP PO SCH (09:48)
[2021-03-20] MEDS: PANTOPRAZOLE 40 MG TAB PO SCH (09:48)
[2021-03-20 12:00] VITALS: BP 121/65
[2021-03-20 16:00] VITALS: BP 104/60
[2021-03-20] MEDS ORDERED: PANC3600 OR (17:45)
[2021-03-20] MEDS ORDERED: DOCU100C10 PO (17:45)
[2021-03-20] MEDS ORDERED: PANT40TA2 PO (17:45)
[2021-03-20] MEDS ORDERED: GABA300C10 PO (17:45)
[2021-03-20] MEDS ORDERED: LACT10SO3 PO (17:45)
[2021-03-20] MEDS ORDERED: CIPR500T4 PO (17:45)
[2021-03-20] MEDS ORDERED: SPIR25TA PO (17:45)
[2021-03-20] MEDS: HYDROcodone-ACET 5/325MG TAB PO PRN (18:25)
[2021-03-20 19:10] VITALS: BP 111/63
== END 2021-03-20 20:57 | disposition home health service (06) | DRG 720 ==
LOC: ER 11:59 → EDBD 11:59 → TELE 12:06 → TELE-WESTW 03-18 21:40
PROVIDERS: ADMIT Internal Medicine; ATTEND Internal Medicine
PROC: 02HV33Z Insertion of Infusion Device into Superior Vena Cava, Percutaneous Approach (ICD-10-PCS; 2021-03-16)
PROC: B548ZZA Ultrasonography of Superior Vena Cava, Guidance (ICD-10-PCS; 2021-03-16)
PROC: 30233K1 Transfusion of Nonautologous Frozen Plasma into Peripheral Vein, Percutaneous Approach (ICD-10-PCS; 2021-03-17)
PROC: 30233N1 Transfusion of Nonautologous Red Blood Cells into Peripheral Vein, Percutaneous Approach (ICD-10-PCS; 2021-03-17)
PROC: 0W9G3ZZ Drainage of Peritoneal Cavity, Percutaneous Approach (ICD-10-PCS; principal; 2021-03-18)
DX: A41.9 Sepsis, unspecified organism (principal); R57.1 Hypovolemic shock; E44.0 Moderate protein-calorie malnutrition; R65.21 Severe sepsis with septic shock; K65.2 Spontaneous bacterial peritonitis; D68.9 Coagulation defect, unspecified; D69.6 Thrombocytopenia, unspecified; E83.51 Hypocalcemia; K70.31 Alcoholic cirrhosis of liver with ascites; Z20.822 Contact with and (suspected) exposure to COVID-19; D64.9 Anemia, unspecified; I50.9 Heart failure, unspecified; E87.6 Hypokalemia; K86.1 Other chronic pancreatitis; F12.90 Cannabis use, unspecified, uncomplicated; F10.10 Alcohol abuse, uncomplicated; F17.210 Nicotine dependence, cigarettes, uncomplicated; K21.9 Gastro-esophageal reflux disease without esophagitis; Z88.1 Allergy status to other antibiotic agents; Z86.73 Personal history of transient ischemic attack (TIA), and cerebral infarction without residual deficits
CPT/HCPCS: 36415; 36430; 71045; 74176; 76700; 76942; 80053; 82150; 82270; 82607; 82746; 83605; 83615; 83690; 83735; 83880; 84484; 85007; 85014; 85018; 85025; 85027; 85610; 85730; 86850; 86900; 86901; 86920; 87040; 87205; 87426; 89051; 93005; 96365; 96367; 97163; G0378; J2001; J2405; J2543; J3480; P9047